=== PATIENT | male | born 1995 | race African-American/Black ===

== ENCOUNTER 2020-03-12 18:42 | Emergency (ER) | payer SELFPAY ==
[2020-03-12 18:47] VITALS: BP 126/72; PULSE 87; RESP 20; TEMP 37; O2SAT 98
--- NOTE | 2020-03-12 19:43 | ED.ALLEREA ---
HPI - Allergic Reaction General Chief complaint: Allergic Reaction <Jesús Magallon PA-C - Last Filed: 03/12/20 19:49> Stated complaint: ?ALL RX <Jesús Magallon PA-C - Last Filed: 03/12/20 19:49> Time Seen by Provider: 03/12/20 19:43 <Jesús Magallon PA-C - Last Filed: 03/12/20 19:49> Source: patient <Jesús Magallon PA-C - Last Filed: 03/12/20 19:49> Mode of arrival: ambulatory <LAUREL Tomas Last Filed: 03/12/20 19:49> Limitations: no limitations <Jesús Magallon PA-C - Last Filed: 03/12/20 19:49> History of Present Illness HPI narrative: Patient is a 24-year-old male who presents to emergency department for evaluation of facial swelling irritation and itching involving the eyes nose and throat patient was working outside today went home took a shower and then followed by a nap upon waking had the symptoms listed above patient denies any recent URI symptoms illness or other complaints or similar occurrence and is otherwise resting comfortably in the room upon arrival in no distress patient has not taken anything for his symptoms. Patient denies throat tightening or difficulty swallowing <Jesús Magallon PA-C - Last Filed: 03/12/20 19:49> Related Data Allergies/adverse reactions: Allergies Allergy/AdvReac Type Severity Reaction Status Date / Time No Known Allergies Allergy Verified 03/12/20 18:50 <Jesús Magallon PA-C - Last Filed: 03/12/20 19:49> Review of Systems Review of Systems: All systems reviewed & are unremarkable except as noted in HPI and below <Jesús Magallon PA-C - Last Filed: 03/12/20 19:49> PMFSH Social History Social History: Social History Gender identity (if verbalized by the patient): Male <Jesús Magallon PA-C - Last Filed: 03/12/20 19:49> Exam Narrative: Exam Narrative: GENERAL: Well-appearing, well-nourished, and in no acute distress. HEAD: Normocephalic, atraumatic. EYES: PERRLA and EOMI. ENT: Nares clear, no rhinorrhea or epistaxis. Mucous membranes moist. Oropharynx without tonsillar hypertrophy exudate or other lesions. No angioedema in the oropharynx NECK: Supple. No adenopathy or masses. No stridor CHEST: Clear to auscultation. No respiratory distress. No wheezes rales or rhonchi HEART: Regular rate and rhythm. No murmur heard. Normal peripheral pulses.. EXTREMITIES: Normal range of motion. No edema. SKIN: Warm, dry, no rash. Patient with swelling of the bilateral eyes with some slight conjunctival injection no other swelling or edema of the face NEURO: No focal deficits. Alert and oriented x3. Cranial nerves II through XII grossly intact PSYCH: Normal mood and affect. <LAUREL Tomas Last Filed: 03/12/20 19:49> Course Course Emergency Course: Patient with likely conjunctivitis with allergic reaction no stridor no angioedema in the oropharynx very stable was given medications to include antihistamines steroids in the emergency department. Patient felt appropriate for outpatient reevaluation will be sent home with antihistamines and steroids and provided with reasons to return <LAUREL Tomas Last Filed: 03/12/20 19:49> Vital Signs Vital signs: Vital Signs Temperature 98.6 F 03/12/20 18:47 Pulse Rate 87 03/12/20 18:47 Respiratory Rate 20 03/12/20 18:47 Blood Pressure 126/72 03/12/20 18:47 Pulse Oximetry 98 03/12/20 18:47 Temperature 98.6 F 03/12/20 18:47 Pulse Rate 60 03/12/20 20:52 Respiratory Rate 16 03/12/20 20:52 Blood Pressure 117/78 03/12/20 20:52 Pulse Oximetry 96 03/12/20 20:52 <LAUREL Tomas Last Filed: 03/12/20 19:49> Vital Signs Temperature 98.6 F 03/12/20 18:47 Pulse Rate 87 03/12/20 18:47 Respiratory Rate 20 03/12/20 18:47 Blood Pressure 126/72 03/12/20 18:47 Pulse Oximetry 98 03/12/20 18:47 Temperature 98.6 F
[2020-03-12] MEDS: FAMOTIDINE 20 MG/2 ML VIAL IV PUSH (20:20)
[2020-03-12] MEDS: OLOPATADINE 0.1% OPHTH SOLN 5 ML BTL 1 DROP EACH EYE (20:20)
[2020-03-12] MEDS: methylPREDNISolone SOD SUCC 125 MG VIAL IV PUSH (20:20)
[2020-03-12 20:52] VITALS: BP 117/78; PULSE 60; RESP 16; O2SAT 96
== END 2020-03-12 20:55 | disposition home or self-care (01) ==
PROVIDERS: Emergency Provider Emergency Medicine
DX: T78.40XA Allergy, unspecified, initial encounter (principal)
CPT/HCPCS: 96374; 96375; 99284; A9270; J1200; J2930

== ENCOUNTER 2022-05-18 18:25 | Emergency (ER) | payer SELFPAY ==
[2022-05-18 18:33] VITALS: BP 110/75; PULSE 62; RESP 16; TEMP 36.8; O2SAT 100
--- NOTE | 2022-05-18 19:05 | ED.URI ---
HPI - URI/Sore Throat General Chief Complaint: Upper Respiratory Infection Stated Complaint: Sore Throat Time Seen by Provider: 05/18/22 19:00 Source: patient, RN notes reviewed and old records reviewed Mode of arrival: ambulatory History of Present Illness HPI Narrative: 26 year old male presents to [facility] care with complaints of blotches on tonsils which were noted today. Patient reports that his tonsils started hurting around noon today. Patient states that he has not had any fever, chills, or sweats. Patient reports that he had sexual relations with his girlfriend and another man over the weekend and now he has these white blotches on his tonsils. Patient reports he has had this infection in the past in his throat hopes he doesn't have it again,denies any cough, nasal congestion or drainage. MD elicited complaint: sore throat and other Treatments prior to arrival: none Related Data Allergies Allergy/AdvReac Type Severity Reaction Status Date / Time No Known Allergies Allergy Verified 05/18/22 18:31 Review of Systems Review of Systems: CONSTITUTIONAL: Denies fever, chills, or sweats. EYES: Denies visual changes, redness, or discharge. ENT: Denies rhinorrhea, congestion,positive for sore throat, or otalgia. CARDIOVASCULAR: Denies chest pain, palpitations, or edema. RESPIRATORY: Denies cough or dyspnea. GASTROINTESTINAL: Denies abdominal pain, nausea, vomiting, or diarrhea. GENITOURINARY: Denies dysuria or hematuria. SKIN: Denies rash or itching. MUSCULOSKELETAL: Denies back pain, joint pain, or myalgia. NEUROLOGIC: Denies headache, numbness, or weakness. PSYCHIATRIC: Denies anxiety or depression. All systems reviewed & are unremarkable except as noted in HPI and below [facility] Past Medical History Medical History (Updated 05/18/22 @ 19:25 by Stefanie Caba NP) Throat infection Surgical History Surgical History (Updated 05/18/22 @ 19:24 by Stefanie Caba NP) [place] teeth extracted Social History Social History (Updated 05/18/22 @ 19:49 by Stefanie Caba NP) Smoking status: Never smoker Alcohol intake: current Alcohol use details: social Substance use: current Substance use type: marijuana Gender identity (if verbalized by the patient): Male Comments At time of signature, agree with nursing past medical, surgical, social and family history. There is no relevant family history pertinent to the presenting complaint Exam Narrative: GENERAL: Well-appearing, well-nourished, and in no acute distress. HEAD: Normocephalic, atraumatic. EYES: PERRLA and EOMI. ENT: Nares clear, no rhinorrhea or epistaxis. Mucous membranes moist.TM's normal with good light reflex, throat red with exudates noted on tonsils with pain voiced, tonsils enlarged NECK: Supple.lymphadenopathy CHEST: Clear to auscultation. No respiratory distress.SAO2 100% on room air, HEART: Regular rate and rhythm. No murmur heard. Normal peripheral pulses. ABDOMEN: Soft, nontender, nondistended, normal active bowel sounds. EXTREMITIES: Normal range of motion. No edema. SKIN: Warm, dry, no rash. NEURO: No focal deficits. Alert and oriented x3. Course Course Level of Care: Express Care Visit Vital Signs Vital signs: Vital Signs Temperature 36.8 C 05/18/22 18:33 Pulse Rate 62 05/18/22 18:33 Respiratory Rate 16 05/18/22 18:33 Blood Pressure 110/75 05/18/22 18:33 Pulse Oximetry 100 05/18/22 18:33 Oxygen Delivery Room Air 05/18/22 18:33 Temperature 36.8 C 05/18/22 18:33 Pulse Rate 62 05/18/22 18:33 Respiratory Rate 16 05/18/22 18:33 Blood Pressure 110/75 05/18/22 18:33 Pulse Oximetry 100 05/18/22 18:33 Oxygen Delivery Room Air 05/18/22 18:33 MDM - URI/Sore Throat Differential Diagnosis Differential diagnosis: Likely upper respiratory infection, viral infection, pharyngitis and other (strep pharyngitis,throat infection) Medical Records Attestation: I reviewed the patient's medical patricia
== END 2022-05-18 19:15 | disposition home or self-care (01) ==
PROVIDERS: Emergency Provider Registered Nurse
DX: J02.9 Acute pharyngitis, unspecified (principal)
CPT/HCPCS: 87070; 87880; 99213; G0463